=== PATIENT | male | born 1955 | race Caucasian/White ===

== ENCOUNTER → 2017-01-16 | Day surgery (SDC) | payer BC, OTHER ==
[~2017-01-16] MED LIST: Lactated Ringers 1,000 ML IV SCH; Lidocaine 1% 4 ML ONE; Lidocaine 1%/Sod Bicarbonate in NS 8.4% 1 ML Syringe PRN; Midazolam 1 MG/ML 2 ML SDV ONE; Propofol 200 MG/20 ML SDV ONE; Sodium Chloride 0.9% 10 ML Syringe FLUSH PRN; fentaNYL 100 MCG/2 ML SDV ONE
--- NOTE | 2017-01-16 10:52 | PCM.PREANE ---
Preanesthetic Assessment - Anesthesia/Transfusion/Family Hx Anesthesia History: Prior Anesthesia Reaction (one time was slow to awaken- ear surgery) Family History of Anesthesia Reaction: No Transfusion History: No Prior Transfusion(s) - Review of Systems General: No Symptoms Pulmonary: No Symptoms Cardiovascular: No Symptoms Gastrointestinal: No symptoms Neurological: No Symptoms Other: Reports: Thyroid Problems - Physical Assessment NPO Status Date: 01/15/17 NPO Status Time: 21:00 Pulse: 69 O2 Sat by Pulse Oximetry: 96 Respiratory Rate: 17 Blood Pressure: 131/88 Temperature: 96.3 F Height: 5 ft 8 in Weight: 82.781 kg ASA Class: 3 Mental Status: Alert & Oriented x3 Airway Class: Mallampati = 1 Dentition: Reports: Dentures (not in) Thyro-Mental Finger Breadths: 3 Mouth Opening Finger Breadths: 3 ROM/Head Extension: Full Lungs: Clear to auscultation, Normal respiratory effort Cardiovascular: Regular Rate, Regular Rhythm - Allergies Allergies/Adverse Reactions: Allergies Allergy/AdvReac Type Severity Reaction Status Date / Time diclofenac Allergy Hives Verified 01/16/17 10:55 - Blood Blood Available: No - Anesthesia Plan Beta Ignacia: Propranolol Med Last Dose Date: 01/16/17 Med Last Dose Time: 08:00 - Acknowledgements Anesthesia Type Planned: MAC Pt an Appropriate Candidate for the Planned Anesthesia: Yes Alternatives and Risks of Anesthesia Discussed w Pt/Guardian: Yes Pt/Guardian Understands and Agrees with Anesthesia Plan: Yes PreAnesthesia Questionnaire HEENT History: Reports: Impaired Vision, Other (See Below) Other HEENT History: wears glasses,dentures Cardiovascular History: Reports: High Cholesterol, Hypertension, IA, Stents, Other (See Below) Other Cardiovascular History: chronic ischemic heart disease, coronary stent, stress test in 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 Respiratory History: Reports: None, Other (See Below) (smoker) Gastrointestinal History: Reports: GERD, Other (See Below) Other Gastrointestinal History: reflux, heartburn Genitourinary History: Reports: None SENIOR DATA ARCHITECT History: Reports: None Neurological History: Reports: Migraines (not any for a long time) Psychiatric History: Reports: Other (See Below) Other Psychiatric History: insomnia Endocrine/Metabolic History: Reports: Hypothyroidism Hematologic History: Reports: None Immunologic History: Reports: None Oncologic (Cancer) History: Reports: None Dermatologic History: Reports: Psoriasis (cleared up) - Past Surgical History HEENT Surgical History: Reports: Myringotomy w Tube(s) GI Surgical History: Reports: Colonoscopy, EGD Female Surgical History: Reports: None Male Surgical History: Reports: None Neurological Surgical History: Reports: Other (See Below) Other Neurological Surgeries/Procedures: spine surgery Musculoskeletal Surgical History: Reports: Other (See Below) Other Musculoskeletal Surgeries/Procedures:: bilateral carpal tunnel release, spine surgery with hardware - SUBSTANCE USE Smoking Status *Q: Current Every Day Smoker Tobacco Use Within Last Twelve Months: Cigarettes Second Hand Smoke Exposure: Yes Days Per Week of Alcohol Use: 0 Recreational Drug Use History: No - HOME MEDS Home Medications: Home Meds Acetaminophen with Codeine [Tylenol with Codeine #3 Tablet] 1 tab PO Q8H PRN [History] Aspirin 325 mg PO DAILY 01/15/17 [History] Betamethasone Dipropionate 1 applic TOP TID PRN 01/15/17 [History] Cyclobenzaprine [Flexeril] 5 - 10 mg PO BEDTIME PRN 01/15/17 [History] Dibucaine [Nupercainal 1% Oint] 1 applic TOP BID PRN 01/15/17 [History] Halobetasol Propionate 1 applic TOP TID PRN 01/15/17 [History] Hydrochlorothiazide 12.5 mg PO DAILY 01/15/17 [History] Hydrocortisone Acetate 1 supp RECTAL ASDIRECTED PRN 01/15/17 [History] Levothyroxine [Synthroid] 50 mcg PO DAILY 01/15/17 [History] Losartan/Hydrochlorothiazide [Hyzaar 50-12.5 Tablet] 1 tab PO DAILY 01/15/17 [ History] Nitroglycerin [Nitrostat] 0.4 mg PO ASDIRECTED PRN 01/15/17 [History] [place]-3 Acid Ethyl Esters [Lovaza] 1 g PO BID 01/15/17 [History] Omeprazole Magnesium [Prilosec Otc] 20 mg PO BID 01/15/17 [History] Pravastatin [Pravachol] 40 mg PO DAILY 01/15/17 [History] Propranolol [Inderal] 40 mg PO BID 01/15/17 [History] Sertraline [Zoloft] 100 mg PO DAILY 01/15/17 [History] Topiramate [Topamax] 50 mg PO DAILY 01/15/17 [History] Zolpidem Tartrate [Zolpidem Tartrate ER] 12.5 mg PO BEDTIME PRN 01/15/17 [ History] amLODIPine [Norvasc] 5 mg PO DAILY 01/15/17 [History] - CURRENT (IN HOUSE) MEDS Current Meds: Current Medications Lactated Ringer's (Ringers, Lactated) 1,000 mls @ 125 mls/hr IV ASDIRECTED DAHLIA Stop: 01/16/17 23:00 Lidocaine/Sodium Bicarbonate (Buffered Lidocaine 1% In Ns 8.4%) 0.25 ml .XX ONETIME PRN PRN Reason: Prior to IV Start Stop: 01/16/17 18:00 Sodium Chloride (Saline Flush) 10 ml FLUSH ASDIRECTED PRN PRN Reason: Keep Vein Open Stop: 01/16/17 18:00
--- NOTE | 2017-01-16 12:32 | PCM48HPAN ---
Post Anesthesia Note - EVALUATION WITHIN 48HRS OF ANESTHETIC Vital Signs in Normal Range: Yes Patient Participated in Evaluation: Yes Respiratory Function Stable: Yes Airway Patent: Yes Cardiovascular Function Stable: Yes Hydration Status Stable: Yes Pain Control Satisfactory: Yes Nausea and Vomiting Control Satisfactory: Yes Mental Status Recovered: Yes
[2017-01-16 12:35] VITALS: BP 120/83
--- NOTE | 2017-01-16 12:39 | PCM.OPNOTE ---
- General Post-Op/Procedure Note Date of Surgery/Procedure: 01/16/17 Operative Procedure(s): Diagnostic EGD with cold forceps biopsy, diagnostic colonoscopy with cold forceps polypectomy Pre Op Diagnosis: Change in bowel pattern, history of rectal pain, reflux, heartburn, inability to wean off of PPI, history of atypical chest pain (2013) Post-Op Diagnosis: Gastritis, duodenitis, hiatal hernia (7 cm), Lemons's esophagus, diverticulosis, colon polyps, Grade I internal hemorrhoids Anesthesia Technique: MAC Primary Surgeon: Aster Rizzo Anesthesia Provider: Star Garcia Pathology: 1. Small bowel biopsy 2. Antral biopsy 3. Distal esophageal biopsy 4. Polyps at 40 cm (2) Fluid Replacement, Intraop: 600 (mL crystalloid ) EBL in mLs: 1 Complications: None Condition: Good Free Text/Narrative:: INDICATION FOR PROCEDURE: The patient is a 61-year-old man who was referred to me by Dr. Monzon for evaluation for change in bowel pattern, hx of rectal pain , reflux, heartburn, inability to wean PPI, hx of atypical chest pain (2013). Performing a colonoscopy and EGD and the associated risks of the procedures had been discussed with the patient. The patient found these risks acceptable and agreed to proceed. DESCRIPTION OF PROCEDURE: The patient was taken to the operating room and placed in the left lateral decubitus position. After induction of adequate sedation, a bite block was placed. A standard Olympus gastroscope was inserted into the oropharynx and guided down the esophagus without difficulty. The gastroesophageal junction was appreciated at 34 cm from the teeth. There was no evidence of stricture or esophageal ulcerations. The scope was advanced into the stomach, and there was gastritis, worst around the antrum. The scope was passed into the proximal jejunum and the duodenum which showed duodenitis of D1/D2. There were no petechiae or ulcerations. The proximal jejunum was grossly normal in appearance. Multiple cold forceps biopsies were obtained of the proximal jejunum and duodenum. The scope was withdrawn into the antrum, and additional cold forceps biopsies were obtained. The remainder of the gastric body was examined, and there were no other obvious abnormalities. The scope was retroflexed, and there was a large hiatal hernia. The scope was straightened and withdrawn to the GE junction. Additional cold forceps biopsies were obtained of the distal esophagus. The scope was withdrawn through the remainder of the esophagus and no further abnormalities were noted. The posterior oropharynx was grossly normal in appearance. The scope was fully withdrawn and attention was then turned to the colonoscopy. A digital rectal exam was performed which was unremarkable. No prostatic nodules. A adult Olympus colonoscope was inserted into the rectum and guided under direct visualization to the appendiceal orifice and ileocecal valve. The scope was then slowly withdrawn through the colon. The quality of the prep was good. There was no evidence of angiodysplasias. Diverticulosis, moderate, was noted in the sigmoid colon. There were 2 polyps, one small and one medium, which were removed with cold forceps. The scope was withdrawn into the rectum and retroflexed. There were Grade I internal hemorrhoids. The scope was straightened, the colon was desufflated, and the scope was withdrawn. The patient was awakened from sedation and transferred to the recovery room in stable condition having tolerated the procedure well. POSTOPERATIVE PLAN: The patient will follow up in approximately 7-14 days to discuss pathology and further treatment. The patient is to continue Omeprazole 20mg twice daily and all of his current medications for follow up. I would recommend consideration of surgical evaluation for hiatal hernia repair. We will need to discuss him discontinuing his aspirin. I have asked the patient to follow a GERD\gastritis diet. The patient is to call with any worsening of symptoms or questions prior to the appointment.
== END | disposition home or self-care (01) ==
LOC: JD.SDS 10:24
PROVIDERS: ATTEND Surgery
DX: K29.70 Gastritis, unspecified, without bleeding (principal); K63.5 Polyp of colon; K44.9 Diaphragmatic hernia without obstruction or gangrene; K57.30 Diverticulosis of large intestine without perforation or abscess without bleeding; K64.0 First degree hemorrhoids; F17.210 Nicotine dependence, cigarettes, uncomplicated; I25.2 Old myocardial infarction; I10 Essential (primary) hypertension; I25.9 Chronic ischemic heart disease, unspecified; K21.9 Gastro-esophageal reflux disease without esophagitis; E03.9 Hypothyroidism, unspecified; E78.00 Pure hypercholesterolemia, unspecified; G43.909 Migraine, unspecified, not intractable, without status migrainosus; Z88.6 Allergy status to analgesic agent; Z95.5 Presence of coronary angioplasty implant and graft; Z79.82 Long term (current) use of aspirin; Z79.899 Other long term (current) drug therapy; Z98.890 Other specified postprocedural states
CPT/HCPCS: 43239; 45380; 88305; J2250; J3010; J7120; 00810; J2704